=== PATIENT | male | born 1990 | race Caucasian/White ===

== ENCOUNTER 2021-03-02 21:56 | Emergency (ER) | payer MEDICARE, MEDICAID ==
[~2021-03-02] VITALS: Ht 177.8 cm; Wt 110.0 kg
[2021-03-02] MEDS ORDERED: LEVETIRACETAM 500MG/5ML CUP PO ONE (23:00)
[2021-03-02] MEDS ORDERED: LORAZEPAM 1MG TABLET PO ONE (23:00)
[2021-03-02] MEDS ORDERED: KEPP500 MT (23:18)
[2021-03-02 23:50] VITALS: BP 147/92
== END 2021-03-03 00:15 | disposition home or self-care (01) ==
LOC: EDBD 21:56 → ER 21:56
DX: F15.10 Other stimulant abuse, uncomplicated (principal); F41.9 Anxiety disorder, unspecified; G40.909 Epilepsy, unspecified, not intractable, without status epilepticus; Z98.890 Other specified postprocedural states
CPT/HCPCS: 99283

== ENCOUNTER 2021-09-10 23:57 | Emergency (ER) | payer MEDICARE, MEDICAID ==
[~2021-09-10] VITALS: Ht 182.9 cm; Wt 100.0 kg
[~2021-09-10 23:57] MED LIST: KEPP500 MT
[2021-09-11 00:45] VITALS: BP 109/66
[2021-09-11] MEDS ORDERED: MIDAZOLAM HCL 2 MG/2 ML VIAL IV ONE (00:45)
== END 2021-09-11 02:52 | disposition home or self-care (01) ==
LOC: ER 23:57
DX: F13.10 Sedative, hypnotic or anxiolytic abuse, uncomplicated (principal); F15.10 Other stimulant abuse, uncomplicated; G40.909 Epilepsy, unspecified, not intractable, without status epilepticus; F10.20 Alcohol dependence, uncomplicated; Y90.9 Presence of alcohol in blood, level not specified; Z86.73 Personal history of transient ischemic attack (TIA), and cerebral infarction without residual deficits
CPT/HCPCS: 96374; 99283; J2250